=== PATIENT | female | born 1990 | race Hispanic/Latino ===

== ENCOUNTER 2017-10-29 05:14 | Inpatient (IN) | payer BC, MEDICAID ==
[~2017-10-29] VITALS: Ht 160 cm; Wt 90.3 kg
[2017-10-29] MEDS ORDERED: LACTATED RINGERS 1000ML 1,000 ML IV PRN (05:19)
[2017-10-29] MEDS ORDERED: ROPIVACAINE 0.2%200ML EPIDURAL 200 ML EP SCH (05:30)
[2017-10-29] MEDS ORDERED: LACTATED RINGERS 500 ML 500 ML IV PRN (05:30)
[2017-10-29] MEDS ORDERED: NALOXONE HCL 0.4 MG/1 ML ML IV PRN (05:30)
[2017-10-29] MEDS ORDERED: OXYTOCIN-LR 20 UNITS/1000 ML 1,000 ML IV SCH ×2 (05:30→11:30)
[2017-10-29] MEDS ORDERED: OXYTOCIN 10 USP UNITS/ML 20 UNIT in LACTATED RINGERS 1000ML 1,000 ML IV SCH (05:30)
[2017-10-29] MEDS ORDERED: EPHEDRINE SULFATE 50 MG/ML AMPULE IVP PRN (05:30)
[2017-10-29 06:18] LABS: HEMATOCRIT 40.6 % (36-48); MEAN CORPUSCULAR HGB CONC 34.8 g/dL (32.0-36.0); MEAN CORPUSCULAR VOLUME 91.7 fL (79-99); PLATELET COUNT (AUTO) 182 K/uL (130-400); RED BLOOD CELL COUNT(AUTO) 4.42 MIL/uL (4.00-5.50); RED CELL DISTRIBUTION WIDTH 14.6 % (11.0-15.5); WHITE BLOOD COUNT (AUTO) 10.6 K/uL (4.8-10.8)
[2017-10-29] MEDS ORDERED: OXYTOCIN 10 USP UNITS/ML ONE ×2 (06:20→12:26)
[2017-10-29] MEDS ORDERED: LACTATED RINGERS 1000ML 1,000 ML IV ONE (06:20)
[2017-10-29 06:32] LABS: APPEARANCE,URINE Clear (CLEAR); BILIRUBIN,URINE Negative (NEGATIVE); COLOR,URINE Yellow (YELLOW); GLUCOSE, URINE (UA) Negative (NEGATIVE); KETONES,URINE Negative (NEGATIVE); LEUKOCYTE ESTERASE ,URINE Moderate (NEGATIVE); NITRATE,URINE Negative (NEGATIVE); OCCULT BLOOD,URINE Negative (NEGATIVE); PROTEIN,URINE Negative (NEGATIVE)
[2017-10-29 07:02] LABS: BACTERIA,URINE Few /HPF (None Seen); RBC,URINE 0-1 /HPF (0-1); SQUAMOUS EPITHELIAL CELL,UR Moderate /LPF (0-2)
[2017-10-29] MEDS ORDERED: WITCH HAZEL 1 PAD TP PRN (11:30)
[2017-10-29] MEDS ORDERED: LANOLIN 30GM OINTMENT TP PRN (11:30)
[2017-10-29] MEDS ORDERED: ACETAMINOPHEN-CODEINE 300/30MG TAB PO PRN (11:30)
[2017-10-29] MEDS ORDERED: DIPH,PERTUSS(ACELL),TET VAC/PF 0.5 ML VIAL IM PRN (11:30)
[2017-10-29] MEDS ORDERED: BENZOCAINE/LANOLIN/ALOE VERA 60 ML AEROSOL TP PRN (11:30)
[2017-10-29] MEDS: IBUPROFEN 800 MG TAB PO PRN (15:18)
[2017-10-29 19:15] VITALS: BP 123/69
[2017-10-29] MEDS: DOCUSATE SODIUM 100 MG CAP PO SCH (20:49)
[2017-10-29 23:15] VITALS: BP 116/70
[2017-10-30 03:15] VITALS: BP 106/69
[2017-10-30] MEDS: DOCUSATE SODIUM 100 MG CAP PO SCH (07:47)
[2017-10-30] MEDS: IBUPROFEN 800 MG TAB PO PRN (07:48)
[2017-10-30 10:21] LABS: HEPATITIS Bs ANTIGEN SCREEN P Negative (Negative)
[2017-10-30] MEDS ORDERED: DIPH,PERTUSS(ACELL),TET VAC/PF 0.5 ML VIAL IM PRN (14:15)
== END 2017-10-30 14:30 | disposition home or self-care (01) | DRG 775 ==
LOC: LDH 05:14 → WSH 15:37 → EDSTATUS 11-01 05:11
PROC: 0KQM0ZZ Repair Perineum Muscle, Open Approach (ICD-10-PCS; principal; 2017-10-29)
PROC: 10E0XZZ Delivery of Products of Conception, External Approach (ICD-10-PCS; 2017-10-29)
PROC: 3E0R3BZ Introduction of Anesthetic Agent into Spinal Canal, Percutaneous Approach (ICD-10-PCS; 2017-10-29)
PROC: 00HU33Z Insertion of Infusion Device into Spinal Canal, Percutaneous Approach (ICD-10-PCS; 2017-10-29)
PROC: 3E0234Z Introduction of Serum, Toxoid and Vaccine into Muscle, Percutaneous Approach (ICD-10-PCS; 2017-10-29)
DX: O70.1 Second degree perineal laceration during delivery (principal); Z37.0 Single live birth; Z23 Encounter for immunization; Z3A.39 39 weeks gestation of pregnancy; Z83.3 Family history of diabetes mellitus
CPT/HCPCS: 36415; 81001; 85027; 86592; 86850; 86900; 86901; 87340; 90715; A4314; A4606; J2590; J7120